=== PATIENT | male | born 1960 | race Hispanic/Latino ===

== ENCOUNTER 2016-09-26 06:11 | Emergency (ER) | payer MEDICARE | END 2016-09-26 06:30 | disposition left against medical advice (07) | LOC: ED 06:11 | DX: R07.9 Chest pain, unspecified (principal); M79.604 Pain in right leg; Z53.21 Procedure and treatment not carried out due to patient leaving prior to being seen by health care provider | CPT/HCPCS: 93005; 93010 ==

== ENCOUNTER 2016-10-16 01:39 | Emergency (ER) | payer MEDICARE ==
[2016-10-16 03:04] LABS: Basophils % (Auto) 1.3 % (0.0-1.8); Eosinophils % (Auto) 1.5 % (0.0-4.3); Hematocrit 38.1 % (35.5-45.6); Hemoglobin 12.8 gm/dl (11.8-15.2); Mean Corpuscular HGB Conc 34 % (32-34); Mean Corpuscular Hemoglobin 31 pg (28-32); Mean Corpuscular Volume 93 fl (84-94); Platelet Count 321 K/mm3 (140-440); Red Blood Count 4.09 M/mm3 (3.65-5.03); White Blood Count 7.5 K/mm3 (4.5-11.0)
[2016-10-16 03:13] LABS: INR 0.95 (0.87-1.13)
[2016-10-16 03:14] LABS: Partial Thromboplastin Time 27.4 Sec. (24.2-36.6)
[2016-10-16 03:15] LABS: Anion Gap 20 mmol/L; BUN/Creatinine Ratio 34.28; Blood Urea Nitrogen 24 mg/dL (9-20); Calcium 9.2 mg/dL (8.4-10.2); Carbon Dioxide 22 mmol/L (22-30); Chloride 97.5 mmol/L (98-107); Glucose 286 mg/dL (75-100); Potassium 3.9 mmol/L (3.6-5.0); Sodium 136 mmol/L (137-145)
[2016-10-16] MEDS ORDERED: NITRO-BID 2% TP ONE (04:58)
[2016-10-16] MEDS ORDERED: MORPHINE IV ONE (04:58)
[2016-10-16] MEDS ORDERED: ASPIRIN PO ONE (04:58)
[2016-10-16 06:16] VITALS: BP 109/55
--- NOTE | 2016-10-16 06:33 | Emergency Department Report ---
ED General Adult HPI - General Chief complaint: Chest Pain Stated complaint: CHEST PAIN,SOB Time Seen by Provider: 10/16/16 06:22 Source: patient, family, RN notes reviewed, old records reviewed Mode of arrival: Wheelchair Limitations: No Limitations - History of Present Illness Initial comments: This is a 55-year-old male. He is previously unknown to me. The patient follows with Dr. Clark of [facility]. Patient has a past medical history of CABG, hypertension, diabetes, high cholesterol, peripheral vascular disease. The patient presents to the ER complaining of chest pain. The chest pain is central and left-sided. It radiates to the left upper extremity. Patient reports shortness of breath, resolved nausea. He also reports resolved diaphoresis. No recent trips greater than 4 hours, no recent hospital admissions. Patient also reports lower extremity pain. Prior to my evaluation, the patient was given morphine, and nitroglycerin. He reports minimal improvement in pain with either of those interventions. 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 Given that patient was endorsing refractory pain, I recommended admission to the hospital for cardiac consultation. I recommended initiation of heparin drip , and nitroglycerin, and cardiac consultation. I instructed the patient that I was concerned that he might have narcotic seeking tendencies, and I offered him counseling with mental health for this. The patient is now refusing all interventions. He is alert and oriented 3. He is exhibiting decision-making capacity. hes is free from distracting injury. The patient is refusing all further interventions, had his left IV removed, and refused to sign the AGAINST MEDICAL ADVICE paperwork. The risks of leaving, including , disability, paralysis, permanent loss of quality of life, were discussed with the patient, his , and was witnessed by multiple nurses, including nurse Willi Woods and Logan Nogueira. Patient and are instructed to return to the ER right away if and when they change their mind. Location: chest, left, right, upper extremity, lower extremity Severity scale (0 -10): 9 Quality: aching Consistency: constant Improves with: none Worsens with: none Associated Symptoms: chest pain, shortness of breath - Related Data Home Medications Medication Instructions Recorded Confirmed Last Taken Esomeprazole Magnesium [NexIUM] 40 mg PO QDAY 04/08/13 07/18/15 07/18/15 Insulin Detemir [Levemir Flexpen] 30 pen SQ QHS 04/08/13 07/18/15 07/18/15 Pregabalin [Lyrica] 75 mg PO TID 10/31/13 07/18/15 07/17/15 Insulin Aspart [NovoLOG 100 30 unit SQ BID 05/17/14 07/18/15 07/18/15 UNITS/ML VIAL] Albuterol Sulfate [Ventolin HFA] 2 puff IH Q4H PRN 11/30/14 07/18/15 07/18/15 Clopidogrel [Plavix] 75 mg PO QDAY 11/30/14 07/18/15 07/18/15 Metoprolol 25 mg PO DAILY 12/13/14 07/18/15 07/18/15 Previous Rx's Medication Instructions Recorded Last Taken Type Aspirin EC [Aspirin Enteric Coated 81 mg PO QDAY tablet 12/02/14 07/18/15 Rx TAB] Carvedilol [Coreg] 3.125 mg PO BID #60 tablet 12/02/14 07/17/15 Rx ISOSORBIDE MONOnitrate [Imdur ER] 30 mg PO QDAY #30 tablet 12/02/14 07/17/15 Rx Ipratropium/Albuterol Sulfate 1 ampul IH Q6HRT #30 ampul.neb 12/14/14 07/18/15 Rx [Duoneb 0.5 mg-3 mg/3 ml Soln] Allergies Allergy/AdvReac Type Severity Reaction Status Date / Time No Known Allergies Allergy Verified 07/07/13 01:13 ED Review of Systems ROS: Stated complaint: CHEST PAIN,SOB Other details as noted in HPI Constitutional: diaphoresis. denies: malaise Eyes: denies: vision change ENT: denies: epistaxis Respiratory: shortness of breath Cardiovascular: chest pain Gastrointestinal: nausea Genitourinary: denies: dysuria Musculoskeletal: myalgia Skin: denies: lesions Neurological: denies: headache Psychiatric: as per HPI ED Past Medical Hx - Past Medical History Previous Medical History?: Yes Hx Hypertension: Yes Hx CVA: No Hx Heart Attack/AMI: Yes (8 TIMES) Hx Congestive Heart Failure: Yes Hx Diabetes: Yes Hx Deep Vein Thrombosis: No Hx Pulmonary Embolism: No Hx GERD: No Hx Liver Disease: No Hx Renal Disease: No Hx Arthritis: No Hx Headaches / Migraines: No Hx Seizures: No Hx Kidney Stones: Yes Hx Psychiatric Treatment: No Hx Asthma: Yes Hx COPD: Yes Hx Tuberculosis: No Hx Dementia: No Hx HIV: No Additional medical history: neuropathy. EF 20% - Surgical History Past Surgical History?: Yes Hx Coronary Stent: Yes (8 HEART STENTS) Hx Open Heart Surgery: Yes Hx Pacemaker: No Hx Internal Defibrillator: No Hx Cholecystectomy: No Hx Appendectomy: No Hx Breast Surgery: No - Social History Smoking Status: Current Every Day Smoker Substance Use Type: None - Medications Home Medications: Home Medications Medication Instructions Recorded Confirmed Last Taken Type Esomeprazole Magnesium [NexIUM] 40 mg PO QDAY 04/08/13 07/18/15 07/18/15 History Insulin Detemir [Levemir Flexpen] 30 pen SQ QHS 04/08/13 07/18/15 07/18/15 History Pregabalin [Lyrica] 75 mg PO TID 10/31/13 07/18/15 07/17/15 History Insulin Aspart [NovoLOG 100 30 unit SQ BID 05/17/14 07/18/15 07/18/15 History UNITS/ML VIAL] Albuterol Sulfate [Ventolin HFA] 2 puff IH Q4H PRN 11/30/14 07/18/15 07/18/15 History Clopidogrel [Plavix] 75 mg PO QDAY 11/30/14 07/18/15 07/18/15 History Aspirin EC [Aspirin Enteric Coated 81 mg PO QDAY tablet 12/02/14 07/18/1507/18 Rx TAB] Carvedilol [Coreg] 3.125 mg PO BID #60 tablet 12/02/14 07/18/15 07/17/15 Rx ISOSORBIDE MONOnitrate [Imdur ER] 30 mg PO QDAY #30 tablet 12/02/14 07/18/1501/23 Rx Metoprolol 25 mg PO DAILY 12/13/14 07/18/15 07/18/15 History Ipratropium/Albuterol Sulfate 1 ampul IH Q6HRT #30 ampul.neb 12/14/14 07/18/15 07/18/15 Rx [Duoneb 0.5 mg-3 mg/3 ml Soln] ED Physical Exam - General Limitations: No Limitations General appearance: alert, in no apparent distress - Head Head exam: Present: atraumatic, normocephalic - Eye Eye exam: Present: normal appearance, EOMI. Absent: nystagmus - ENT ENT exam: Present: normal exam, normal orophraynx, mucous membranes moist, normal external ear exam - Neck Neck exam: Present: normal inspection, full ROM. Absent: tenderness, meningismus - Respiratory Respiratory exam: Present: normal lung sounds bilaterally. Absent: respiratory distress, wheezes, rales, rhonchi, stridor, decreased breath sounds - Cardiovascular Cardiovascular Exam: Present: regular rate, normal rhythm, normal heart sounds. Absent: bradycardia, tachycardia, irregular rhythm, systolic murmur, diastolic murmur, rubs, gallop - GI/Abdominal GI/Abdominal exam: Present: soft, normal bowel sounds. Absent: distended, tenderness, guarding, rebound, rigid, pulsatile mass - Rectal Rectal exam: Present: deferred - Extremities Exam Extremities exam: Present: normal inspection, full ROM, normal capillary refill , other (2+ pulses noted in the bilateral upper and lower extremities. Compartments are soft.). Absent: tenderness, pedal edema, joint swelling, calf tenderness - Back Exam Back exam: Present: normal inspection, full ROM. Absent: tenderness, CVA tenderness (R), CVA tenderness (L), muscle spasm, paraspinal tenderness, vertebral tenderness - Neurological Exam Neurological exam: Present: alert, oriented X3, normal gait, other (Extraocular movements intact. Tongue midline. No facial droop. Facial sensation intact to light touch in the V1, V2, V3 distribution bilaterally. 5 and 5 strength in 4 extremities.. Sensation is intact to light touch in 4 extremities.). Absent : motor sensory deficit - Psychiatric Psychiatric exam: Present: normal affect, normal mood - Skin Skin exam: Present: warm, dry, intact, normal color. Absent: rash ED Course Vital Signs 10/16/16 10/16/16 10/16/16 02:12 04:42 04:44 Temperature 98.7 F Pulse Rate 98 H 86 79 Respiratory 16 22 25 H Rate Blood Pressure 142/83 141/72 O2 Sat by Pulse 100 100 99 Oximetry 10/16/16 10/16/16 10/16/16 04:51 05:00 05:17 Temperature 97.6 F Pulse Rate 82 80 Respiratory 24 Rate Blood Pressure 152/75 152/75 O2 Sat by Pulse 100 Oximetry 10/16/16 10/16/16 05:30 06:00 Temperature Pulse Rate 88 81 Respiratory 31 H 23 Rate Blood Pressure 139/82 109/55 O2 Sat by Pulse 99 99 Oximetry - Reevaluation(s) Reevaluation #1: 10/16/16 07:41 Differential diagnosis: Acute coronary syndrome, unstable angina, pneumonia, drug-seeking behavior, acute on chronic pancreatitis ED Medical Decision Making - Lab Data Result diagrams: 10/16/16 02:40 10/16/16 02:40 Vital Signs 10/16/16 10/16/16 10/16/16 02:12 04:42 04:44 Temperature 98.7 F Pulse Rate 98 H 86 79 Respiratory 16 22 25 H Rate Blood Pressure 142/83 141/72 O2 Sat by Pulse 100 100 99 Oximetry 10/16/16 10/16/16 10/16/16 04:51 05:00 05:17 Temperature 97.6 F Pulse Rate 82 80 Respiratory 24 Rate Blood Pressure 152/75 152/75 O2 Sat by Pulse 100 Oximetry 10/16/16 10/16/16 05:30 06:00 Temperature Pulse Rate 88 81 Respiratory 31 H 23 Rate Blood Pressure 139/82 109/55 O2 Sat by Pulse 99 99 Oximetry Lab Results 10/16/16 10/16/16 10/16/16 Range/Units 02:40 02:40 02:40 WBC 7.5 (4.5-11.0) K/mm3 RBC 4.09 (3.65-5.03) M/mm3 Hgb 12.8 (11.8-15.2) gm/dl Hct 38.1 (35.5-45.6) % MCV 93 (84-94) fl MCH 31 (28-32) pg MCHC 34 (32-34) % RDW 16.0 H (13.2-15.2) % Plt Count 321 (140-440) K/mm3 Lymph % (Auto) 27.5 (13.4-35.0) % Sandoval % (Auto) 4.7 (0.0-7.3) % Eos % (Auto) 1.5 (0.0-4.3) % Baso % (Auto) 1.3 (0.0-1.8) % Lymph # 2.1 (1.2-5.4) K/mm3 Sandoval # 0.4 (0.0-0.8) K/mm3 Eos # 0.1 (0.0-0.4) K/mm3 Baso # 0.1 (0.0-0.1) K/mm3 Seg Neutrophils % 65.0 (40.0-70.0) % Seg Neutrophils # 4.9 (1.8-7.7) K/mm3 PT 12.6 (12.2-14.9) Sec. INR 0.95 (0.87-1.13) APTT 27.4 (24.2-36.6) Sec. Sodium 136 L (137-145) mmol/L Potassium 3.9 (3.6-5.0) mmol/L Chloride 97.5 L (98-107) mmol/L Carbon Dioxide 22 (22-30) mmol/L Anion Gap 20 mmol/L BUN 24 H (9-20) mg/dL Creatinine 0.7 L (0.8-1.5) mg/dL Estimated GFR > 60 ml/min BUN/Creatinine Ratio 34.28 % Glucose 286 H (75-100) mg/dL Calcium 9.2 (8.4-10.2) mg/dL Troponin T < 0.010 (0.00-0.029) ng/mL Lipase (13-60) units/L 10/16/16 10/16/16 Range/Units 05:00 05:00 WBC (4.5-11.0) K/mm3 RBC (3.65-5.03) M/mm3 Hgb (11.8-15.2) gm/dl Hct (35.5-45.6) % MCV (84-94) fl MCH (28-32) pg MCHC (32-34) % RDW (13.2-15.2) % Plt Count (140-440) K/mm3 Lymph % (Auto) (13.4-35.0) % Sandoval % (Auto) (0.0-7.3) % Eos % (Auto) (0.0-4.3) % Baso % (Auto) (0.0-1.8) % Lymph # (1.2-5.4) K/mm3 Sandoval # (0.0-0.8) K/mm3 Eos # (0.0-0.4) K/mm3 Baso # (0.0-0.1) K/mm3 Seg Neutrophils % (40.0-70.0) % Seg Neutrophils # (1.8-7.7) K/mm3 PT (12.2-14.9) Sec. INR (0.87-1.13) APTT (24.2-36.6) Sec. Sodium (137-145) mmol/L Potassium (3.6-5.0) mmol/L Chloride (98-107) mmol/L Carbon Dioxide (22-30) mmol/L Anion Gap mmol/L BUN (9-20) mg/dL Creatinine (0.8-1.5) mg/dL Estimated GFR ml/min BUN/Creatinine Ratio % Glucose (75-100) mg/dL Calcium (8.4-10.2) mg/dL Troponin T < 0.010 (0.00-0.029) ng/mL Lipase 21 (13-60) units/L - EKG Data 10/16/16 07:42 normal sinus, 94 bpm, rightward axis, QTC 457 ms, poor R wave progression, abnormal EKG, not morphologically consistent with STEMI, when compared to prior EKG from 09/26/2016, the rightward axis appears to be new. - Radiology Data Patient refused chest x-ray Critical care attestation.: If time is entered above; I have spent that time in minutes in the direct care of this critically ill patient, excluding procedure time. ED Disposition Clinical Impression: Chest pain Disposition: LEFT AGAINST MEDICAL ADVICE Is pt being admited?: No Does the pt Need Aspirin: No Condition: Undetermined Instructions: Chest Pain (ED) Additional Instructions: As we discussed, you have left the hospital AGAINST MEDICAL ADVICE. By leaving , the risk of , disability, paralysis, permanent loss of quality of life. Please return to the ER right away if and when you change your mind. Emergency room is open 24 hours a day, 7 days a week, and never closes. If you decide not to return to the emergency room, follow up as soon as possible with your soap grinder and your vascular surgeon. Continue your current outpatient medications. Referrals: PRIMARY SRIRAM, [Primary Care Provider] - 3-5 Days RADHA CLARK MD [Staff Physician] - 3-5 Days AUGIE YOUSSEF MD [Staff Physician] - 3-5 Days
== END 2016-10-16 06:35 | disposition left against medical advice (07) ==
LOC: ED 01:39
DX: R07.9 Chest pain, unspecified (principal); I10 Essential (primary) hypertension; I25.2 Old myocardial infarction; I50.9 Heart failure, unspecified; E11.9 Type 2 diabetes mellitus without complications; J45.909 Unspecified asthma, uncomplicated; J44.9 Chronic obstructive pulmonary disease, unspecified; F17.200 Nicotine dependence, unspecified, uncomplicated; Z79.82 Long term (current) use of aspirin; Z79.4 Long term (current) use of insulin
CPT/HCPCS: 36415; 80048; 83690; 84484; 85025; 85610; 85730; 93005; 93010; 96374; 99285; J2270